=== PATIENT | male | born 1995 | race Caucasian/White ===

== ENCOUNTER 2018-10-11 18:12 | Emergency (ER) | payer SELFPAY ==
[2018-10-11] MEDS: LORAZEPAM 1 MG TAB PO (21:20)
[2018-10-11] MEDS: PROMETHAZINE (1.25 MG/ML) 5 ML CUP PO (21:20)
== END 2018-10-11 21:02 | disposition home or self-care (01) ==
LOC: FTE 21:02
DX: R11.2 Nausea with vomiting, unspecified (principal); F17.210 Nicotine dependence, cigarettes, uncomplicated; F41.9 Anxiety disorder, unspecified; Z76.0 Encounter for issue of repeat prescription
CPT/HCPCS: 99281